=== PATIENT | female | born 1980 | race Caucasian/White ===

== ENCOUNTER 2020-11-15 07:07 | Day surgery (SDC) | payer OTHER, SELFPAY ==
[2020-11-13 15:13] VITALS: BMI 32.3
[2020-11-15 07:26] VITALS: BP 124/84; PULSE 113; RESP 16; TEMP 36.9; O2SAT 100
[2020-11-15] MEDS: sodium chloride 0.9% 1,000 ML 30 ML IV (07:36)
--- NOTE | 2020-11-15 07:51 | W.PM.OPSUD ---
Surgery/Procedure H&P Update DATE OF PROCEDURE: November 15, 2020 DATE H&P PERFORMED: 10/25/20 H&P UPDATE INFORMATION: I have reviewed H&P completed within last 30 days, I have examined patient prior to procedure and No changes to prior documentation PREOP DIAGNOSIS: Family history of colon cancer PRIMARY INDICATION FOR PROCEDURE: The same PLANNED PROCEDURE: Operation Date: 11/15/20 08:15 Proposed Procedures p Colonoscopy 64988 R10.9(Not Applicable) - Amadeo Chun MD
--- NOTE | 2020-11-15 09:11 | ANES.PREANE2 ---
Pre-Anesthetic Assessment Pre-Anesthetic Assessment: Height/Weight: Height 1.57 m Weight 80.286 kg Temp Pulse Resp BP Pulse Ox 98.4 F 113 H 16 124/84 100 11/15/20 07:26 11/15/20 07:26 11/15/20 07:26 11/15/20 07:26 11/15/20 07:26 Preop Diagnosis: Family history of colon cancer Proposed Procedure: Operation Date: 11/15/20 08:15 Proposed Procedures p Colonoscopy 69798 R10.9(Not Applicable) - Amadeo Chun MD Was Beta Ambrosio taken within 24 hours: N/A Last intake: Intake Last Liquid Date 11/14/20 Last Liquid Time 21:00 Last Solid Date 11/13/20 Last Solid Time 21:00 Social: Social History: No alcohol and No tobacco Exam: Pre-Anes Outpt Exam: alert, oriented x 3, clear to auscultation bilaterally and regular rate & rhythm Airway: Submandibular: WNL Cervical ROM: WNL MP: 2 Dentition: Full Neuropsych: Neuropsych: Depression Anesthetic Plan: ASA status: 2 Anesthesia: MAC Risk of > 500 ml blood loss (7ml/kg in children): No Meds/Allergies Current Medications: Current Medications Generic Name Dose Route Start Last Admin Trade Name Freq PRN Reason Stop Dose Admin Sodium Chloride 1,000 mls @ 30 ml s/hr 11/15/20 07:30 11/15/20 07:36 Sodium Chloride 0.9% IV 30 mls/hr .Q24H LAILA Administration PFSH Anesthesia PFSH: Medical History Chronic vulvitis No pertinent past medical history neghx: htn,dm,thyroid,dvt/pe Surgical History Hx of section 2001 2006 Family History Mother Hypertension Diabetes Stroke Hypercholesteremia Colon cancer dx age 64 Father Hypertension Stroke Sister Diabetes x2 Colon cancer dx age 48 Family/Other Diabetes Maternal Aunt and Maternal Uncle Breast cancer Maternal Aunt-- dx age unknown Grandmother Breast cancer Maternal-- dx age 50+ Denies family history of Ovarian cancer Uterine cancer Social History Additional social history: - Tobacco use: Never Alcohol use: occasional Drug use: denies Data Anesthesia Cardiac Studies: No Data to Display
[2020-11-15 09:57] VITALS: BP 117/71; PULSE 76; RESP 16; TEMP 36.4; O2SAT 96
--- NOTE | 2020-11-15 10:05 | ANE.PACU2 ---
Inpatient post-anesthesia follow up: Airway intact: Yes Vital signs: Temperature 97.5 F Pulse Rate 76 Respiratory Rate 16 Blood Pressure 117/71 Pulse Oximetry 96 Oxygen Delivery Me thod Room Air Oxygen Flow Rate Fraction of Inspir ed Oxygen Hydration adequate: Yes Nausea and vomiting: No Pain level: 1 Mental status: Baseline
[2020-11-15 10:12] VITALS: BP 115/81; PULSE 70; RESP 18; O2SAT 97
--- NOTE | 2020-11-15 11:57 | ANE.PACU2 ---
Inpatient post-anesthesia follow up: Airway intact: Yes Vital signs: Temperature 97.5 F Pulse Rate 70 Respiratory Rate 18 Blood Pressure 115/81 Pulse Oximetry 97 Oxygen Delivery Me thod Room Air Oxygen Flow Rate Fraction of Inspir ed Oxygen Hydration adequate: Yes Nausea and vomiting: No Pain level: 1 Mental status: Baseline
[2020-11-15 13:31] LABS: OR HCG Qualitative Urine Negative (Negative)
== END 2020-11-15 10:43 | disposition home or self-care (01) ==
PROVIDERS: Anesthesiology; PCP Family Medicine; Visit Provider Surgery
PROC: 0DJD8ZZ Inspection of Lower Intestinal Tract, Via Natural or Artificial Opening Endoscopic (ICD-10-PCS; CPT 45378; principal; 2020-11-15 08:15)
DX: Z12.11 Encounter for screening for malignant neoplasm of colon (principal); Z80.0 Family history of malignant neoplasm of digestive organs
CPT/HCPCS: 12345; 45378; 84703; J2704; J7030

== ENCOUNTER 2023-03-11 13:26 | Outpatient (CLI) | payer OTHER, SELFPAY ==
--- NOTE | 2023-03-11 13:39 | XRR_ITS ---
PROCEDURE INFORMATION: Exam: XR Cervical Spine Exam date and time: 03/11/2023 1:51 PM Age: 42 years old Clinical indication: Radicular pain (radiculopathy); Cervical region; Additional info: Cervical radiculopathy.No history of trauma or recent surgery is provided. TECHNIQUE: Imaging protocol: Radiologic exam of the cervical spine. 3image(s) are provided. Views: 2 or 3 views. COMPARISON: No relevant prior studies available. FINDINGS: Bones/joints: Osseous alignment is maintained.No displaced fracture or dislocation is appreciated. There is facet, uncovertebral hypertrophy demonstrated. There is some mild spondylosis present for example at the C4-C5 and C5-C6 levels. There appears to be some mild chronic disc space narrowing of the C6-C7 level. The cervicothoracic junction is somewhat obscured on the lateral view. Soft tissues: No radiopaque foreign body or subcutaneous emphysema is appreciated. No abnormal prevertebral soft tissue thickening is appreciated. Lungs: No lung apical pneumothorax or lobar consolidation is appreciated. Other findings: Paranasal sinuses appear well-aerated. XR/XR cervical spine 3V* [id number] IMPRESSION: 1. Osseous alignment is maintained.No fracture or dislocation is appreciated. 2. There is some spurring as well as straightening of the cervical curvature with slight disc space narrowing. If there are localized radicular symptoms then consider MRI.
== END 2023-03-11 13:27 | disposition home or self-care (01) ==
PROVIDERS: PCP Family Medicine; Visit Provider Emergency Medicine
DX: M54.12 Radiculopathy, cervical region (principal)
CPT/HCPCS: 72040

== ENCOUNTER 2023-04-09 13:35 | Outpatient (CLI) | payer OTHER, SELFPAY ==
--- NOTE | 2023-04-09 13:45 | MR_ITS ---
WS: [id number] MRI CERVICAL SPINE NONCONTRAST HISTORY: Left cervical radiculopathy COMPARISON: None available. Technique: Multiplanar, multisequence noncontrast imaging of the cervical spine. Straightening and reversal of the normal cervical lordosis. Disc space narrowing is mild throughout t he cervical spine. Most significant narrowing at C5-6 and C6-7. Indistinctness of the cervical cord at C6-7. There is edema with mild enlargement of the cervical cor d with a central cystic area which could be a very small syrinx of less than 2 mm. Craniocervical junction, C1 and C2 relationship, odontoid process and soft tissues are normal. C2-C3: Normal. C3-C4: Mild disc bulging and a central disc protrusion. Disc contacts the ventral thecal sac and cord . C4-C5: Osteophytic ridging with a moderate central disc protrusion. Contact on the ventral thecal sac with mild deformity of the cervical cord. Mild central and bilateral foraminal stenosis due to disc osteophyte disease. C5-C6: Mild annular disc bulging with a RIGHT paracentral disc protrusion. Small foraminal osteophyte s. Mild central and LEFT foraminal stenosis. C6-C7: Large central to LEFT paracentral and proximal foraminal disc protrusion. There is significant contact on the LEFT lateral thecal sac and the exiting nerve roots. Disc is partially extruded exten ds cephalad from the disc level. This is also the level where there is edema and indistinctness of th e cervical cord. C7-T1: Small foraminal osteophytes. No stenosis. Paraspinal soft tissue are normal. MR/MR cervical spin wo con* [id number] IMPRESSION: 1. Large central to LEFT paracentral and proximal foraminal disc protrusion at C6-7 with significant mass effect and displacement of the cervical cord and ex iting C7 nerve root. 2. At the C6-7 level there is indistinctness and edema within the cervical cor d and possible short syrinx. 3. Central disc protrusion at C3-4 with mild contact on the central cord. 4. Moderate central disc protrusion at C4-5 contacting the cervical cord. Mild central and bilateral foraminal stenosis at C4-5. 5. Mild central and LEFT foraminal stenosis at C5-6.
== END 2023-04-09 13:36 | disposition home or self-care (01) ==
PROVIDERS: PCP Family Medicine; Visit Provider Family Medicine
DX: M54.12 Radiculopathy, cervical region (principal); M48.02 Spinal stenosis, cervical region; M50.221 Other cervical disc displacement at C4-C5 level
CPT/HCPCS: 72141

== ENCOUNTER 2023-10-09 09:17 | Outpatient (CLI) | payer OTHER, SELFPAY ==
--- NOTE | 2023-10-09 09:23 | MM_ITS ---
WS: [id number] BILATERAL 3D TOMOSYNTHESIS DIGITAL DIAGNOSTIC MAMMOGRAPHY WITH CAD CLINICAL INFORMATION: rt breast lump N63.20 HISTORY: RIGHT breast lump COMPARISON: Baseline TECHNIQUE: Bilateral CC, MLO, and ML views. FINDINGS: The breasts are composed of heterogeneous fibroglandular density, which can limit the detection of sm all underlying mass lesions. Dense parenchymal tissue deep to the palpable marker RIGHT breast. Ultra sound of this area is pending. A few incidental punctate calcifications bilaterally. LEFT breast is unremarkable. ULTRASOUND BREAST RIGHT TECHNIQUE: Ultrasound right breast focused area of concern. CLINICAL INFORMATION: rt breast lump N63.20 FINDINGS: Ultrasound RIGHT breast in the area of interest at the 9 o'clock position. 3 cm from the nipple there is a complex cystic lesion with internal echogenic debris measuring approximately 1.9 x 1.9 x 1.3 cm . Associated through transmission. This most like represents a complex cyst. Recommend 6-month follow -up ultrasound to confirm stability. Alternatively this could be aspirated with ultrasound guidance i f desired. IMPRESSION: MM/[place] [id number] BI-RADS: 3-Probably Benign FOLLOW UP: 6 Month Follow-up Recommend 6-month ultrasound follow-up of the complex cystic lesion RIGHT breas t. Alternatively this could be aspirated under ultrasound if desired.
--- NOTE | 2023-10-09 10:00 | US_ITS ---
WS: [id number] BILATERAL 3D TOMOSYNTHESIS DIGITAL DIAGNOSTIC MAMMOGRAPHY WITH CAD CLINICAL INFORMATION: rt breast lump N63.20 HISTORY: RIGHT breast lump COMPARISON: Baseline TECHNIQUE: Bilateral CC, MLO, and ML views. FINDINGS: The breasts are composed of heterogeneous fibroglandular density, which can limit the detection of sm all underlying mass lesions. Dense parenchymal tissue deep to the palpable marker RIGHT breast. Ultra sound of this area is pending. A few incidental punctate calcifications bilaterally. LEFT breast is unremarkable. ULTRASOUND BREAST RIGHT TECHNIQUE: Ultrasound right breast focused area of concern. CLINICAL INFORMATION: rt breast lump N63.20 FINDINGS: Ultrasound RIGHT breast in the area of interest at the 9 o'clock position. 3 cm from the nipple there is a complex cystic lesion with internal echogenic debris measuring approximately 1.9 x 1.9 x 1.3 cm . Associated through transmission. This most like represents a complex cyst. Recommend 6-month follow -up ultrasound to confirm stability. Alternatively this could be aspirated with ultrasound guidance i f desired. IMPRESSION: US/US breast RT limited* [id number] BI-RADS: 3-Probably Benign FOLLOW UP: 6 Month Follow-up Recommend 6-month ultrasound follow-up of the complex cystic lesion RIGHT breas t. Alternatively this could be aspirated under ultrasound if desired.
== END 2023-10-09 09:18 | disposition home or self-care (01) ==
LOC: RAD 09:17
PROVIDERS: PCP Family Medicine; Visit Provider Nurse Practitioner Women's Health
DX: N63.15 Unspecified lump in the right breast, overlapping quadrants (principal)
CPT/HCPCS: 76642; 77062; G0279

== ENCOUNTER → 2023-12-24 09:30 | Outpatient (BNVA) | payer OTHER, SELFPAY | PROVIDERS: PCP Family Medicine; Visit Provider Nurse Practitioner Women's Health | DX: Z12.4 Encounter for screening for malignant neoplasm of cervix (principal) | CPT/HCPCS: 87624 ==

== ENCOUNTER → 2024-07-29 12:01 | Outpatient (BNVA) | payer OTHER, SELFPAY | PROVIDERS: PCP Family Medicine; Visit Provider Nurse Practitioner Women's Health | DX: Z30.433 Encounter for removal and reinsertion of intrauterine contraceptive device (principal) | CPT/HCPCS: 76857 ==

== ENCOUNTER 2025-01-18 15:05 | Outpatient (CLI) | payer OTHER, SELFPAY ==
--- NOTE | 2025-01-18 15:00 | MM_ITS ---
WS: [id number] BILATERAL 3D TOMOSYNTHESIS DIGITAL SCREENING MAMMOGRAPHY WITH CAD CLINICAL INFORMATION: Z12.31 - Encounter for screening mammogram for malignant ... HISTORY: Screening mammogram. No current complaints. COMPARISON: 2023 TECHNIQUE: Bilateral CC and MLO views. FINDINGS: The breasts are composed of heterogeneous fibroglandular density tissue, which can limit the detection of small underlying mass lesions. No suspicious mass, asymmetry, calcifications, or architectural distortion. No evidence of malignancy. A few tiny incidental punctate calcifications. MM/MM [facility] tomosynthesis [id number] IMPRESSION: DENSITY: The breasts are heterogeneously dense, which may obscure small masses. BI-RADS: 2 - Benign FOLLOW UP: 1 Year Follow-up Recommend return to annual screening mammography.
== END 2025-01-18 15:06 | disposition home or self-care (01) ==
PROVIDERS: PCP Family Medicine; Visit Provider Nurse Practitioner Women's Health
DX: Z12.31 Encounter for screening mammogram for malignant neoplasm of breast (principal); R92.333 Mammographic heterogeneous density, bilateral breasts
CPT/HCPCS: 77063; 77067

== ENCOUNTER → 2025-03-14 07:28 | Outpatient (BNVA) | payer OTHER, SELFPAY | PROVIDERS: PCP Family Medicine | DX: R39.9 Unspecified symptoms and signs involving the genitourinary system (principal) | CPT/HCPCS: 81000 ==

== ENCOUNTER → 2025-03-29 09:42 | Outpatient (BNVA) | payer OTHER, SELFPAY | PROVIDERS: PCP Family Medicine; Visit Provider Family Medicine | DX: R30.0 Dysuria (principal); N39.0 Urinary tract infection, site not specified | CPT/HCPCS: 81000; 87086 ==